=== PATIENT | male | born 1980 | race Caucasian/White ===

== ENCOUNTER 2021-10-10 07:31 | Day surgery (SDC) | payer OTHER ==
[2021-10-10] VITALS (190 sets, daily range): BP systolic 101–174; BP diastolic 54–121
[~2021-10-10] VITALS: Ht 190.5 cm; Wt 136.0 kg
--- NOTE | 2021-10-10 06:59 | NUR ---
PT ARRIVED ROOM 290 ACCOMPAINED BY FAMILY MEMBERS. PT A&OX4, AMBULATORY WITH STEADY GAIT. DISCUSSED POC AND SAFETY PRECAUTIONS. PT VERBALIZED UNDERSTANDING. CONSENT OBTAINED. IV SITE ESTABLISHED. ORIENTED TO ROOM AND CALL LIGHT SYSTEM. PT CHANGED INTO GOWN AT THIS TIME. CALL LIGHT WITHIN REACH. WILL CONTINUE TO MONITOR.
[2021-10-10 07:27] LABS: HEMATOCRIT 44.3 % (39.0-50.0); HEMOGLOBIN 14.7 g/dl (14.0-18.0); IMMATURE GRANULOCYTES 0.4 % (0.0-5.0); MEAN CELL VOLUME 92.5 fL CALC (80.0-100.0); MEAN CORPUSCULAR HGB 30.7 pG CALC (26.0-32.0); MEAN CORPUSCULAR HGB CONC 33.2 g/dL CAL (32.0-36.0); NEUT# 6.23 thou/uL (1.82-7.42); RED BLOOD COUNT 4.79 mill/uL (4.70-6.10)
--- NOTE | 2021-10-10 07:30 | NUR ---
VSS CALLED TO DR. DONNELLY AT THIS TIME, NEW ORDERS RECEIVED. WILL MEDICATE AND CONTINUE TO MONITOR.
[2021-10-10 07:47] LABS: ALBUMIN 4.2 g/dL (3.2-5.0); ALKALINE PHOSPHATASE 78 u/l (38-126); ANION GAP 13 (6-22 (CALC)); BILIRUBIN, TOTAL 0.5 mg/dL (0.0-1.4); BUN 12 mg/dL (9-20); BUN/CREATININE RATIO 16 (12-20 (CALC)); CARBON DIOXIDE 27 mmol/l (22-30); CHLORIDE 103 mmol/l (95-108); CREATININE 0.7 mg/dL (0.7-1.3); GFR FOR AFR.AMER. > 60 ML/MIN (>=60 (CALC)); GFR OTHER RACES > 60 ML/MIN (>=60 (CALC)); POTASSIUM 4.3 mmol/l (3.5-5.1); SGOT/AST 30 u/l (17-59); SODIUM 138 mmol/l (137-146); TOTAL PROTEIN 7.6 g/dL (6.3-8.2)
--- NOTE | 2021-10-10 09:30 | NUR ---
REPEAT VS CALLED TO DR. DONNELLY AT THIS TIME. NEW ORDERS RECEIVED. WILL MEDICATE AND CONTINUE TO MONITOR.
--- NOTE | 2021-10-10 12:05 | NUR ---
Induction Note Patient to [facility] procedure room. Time out performed at 1205. Patient placed on monitors, Enrico hugger, bilateral wrist restraints applied for ET tube protection. Versed 5mg given IV push at 1206 Tourniquet applied to right arm Lidocaine 100mg given [id number] IV push followed by Rocoronium 10mg at 1208 IV push and held for 90 seconds. Propofol bolus of 150mg given at 1210 IV push. Succinylcholine 80mg given IV push at 1211. Smooth intubation with 7.5 ETT. Positive CO2. Positive Auscultation for air exchange. Patient placed on ventilator for spontaneous ventilation. Placed on Propofol IV drip at 1212. OG inserted. Positive air on auscultation. Positive gastric content. Stomach washed at this time.
--- NOTE | 2021-10-10 12:23 | NUR ---
OG close note Stomach washed at this time. Naltrexone 75 mg with Clonidine 0.3 mg via OG tube. OG will be clamped for 45 minutes.
--- NOTE | 2021-10-10 13:08 | NUR ---
OG open note OG open at this time. Gastric content draining into drainage bag. OG to drain for 45 minutes. Propofol will be titrated down based on patient.
--- NOTE | 2021-10-10 13:53 | NUR ---
OG close note Stomach washed at this time. Naltrexone 50 mg with Clonidine 0.3 mg via OG tube. OG will be clamped for 45 minutes.
--- NOTE | 2021-10-10 15:23 | NUR ---
OG close note Stomach washed at this time. Naltrexone 25 mg with Clonidine 0.3 mg via OG tube. OG will be clamped for 45 minutes.
[2021-10-10] MEDS ORDERED: KLONOPIN2 MG PO (15:55)
[2021-10-10] MEDS ORDERED: CLONIDINE0.1 MG PO (15:56)
[2021-10-10] MEDS ORDERED: NALTREXONE50 MG PO (15:56)
--- NOTE | 2021-10-10 17:50 | NUR ---
OG close note Stomach washed at this time. Naltrexone 25 mg with Clonidine 0.3 mg via OG tube.KLONIPIN 2 MG OG TUBE. OG will be clamped for 30 minutes.
--- NOTE | 2021-10-10 18:40 | NUR ---
Extubation note Closing medications given Benadryl 50mg IV push, Decadron 10mg IV push,Magnesium 4 grams IV, Zofran 8mg IV push, Octreotide 100mcg SC. Stomach washed out prior to extubation. Suctioned gastric content. OG removed. Patient extubated. Propofol Discontinued. Wrist restraints removed. Enrico hugger Removed. See ANR Moderate sedate recovery record for further notes and assessment.
--- NOTE | 2021-10-10 19:05 | NUR ---
PT TRANSPORTED BACK TO ROOM 290. REPORT GIVEN TO EMMETT NELSON. PT RESTING COMFORTABLY IN BED. VSS. BED IN LOWEST POSITION, CALL LIGHT WITHIN REACH.
--- NOTE | 2021-10-10 19:35 | NUR ---
PATIENT LAYING IN BED. REDIRECTED MULTIPLE TIMES TO PUT ARMS DOWN. NO SIGNS OF DISTRESS. BED REMAINS IN LOW POSITION. BED ALARM ACTIVE.
--- NOTE | 2021-10-11 00:40 | NUR ---
PATIENT LAYING IN BED. NEEDS FREQUENT REMINDING. PULLS AT THINGS. NO DISTRESS NOTED. BED REMAINS IN LOW POSITION WITH HOB ELEVATED. PATIENT KEEPS PULLING OUT IVS. REDIRECTED. BED ALARM REMAINS ACTIVE.
[2021-10-11 02:45] VITALS: BP 146/86
--- NOTE | 2021-10-11 03:04 | NUR ---
PATIENT HAD ONE EPISODE OF EMESIS. PRN ZOFRAN GIVEN PER ORDERS. VS STABLE. NO DISTRESS NOTED. PATIENT WAS ASKING QUESTIONS AFTER RECEIVING THE MEDICATION. PATIENT ASKED TO HAVE THE HEAD OF HIS BED FLAT. EDUCATED PATIENT ON IMPORTANCE OF THE HOB NEEDED TO BE ELEVATED FOR SAFETY REASONS IN CASE HE THROWS UP AGAIN.
--- NOTE | 2021-10-11 04:28 | NUR ---
PATIENT ATTEMPTED TO GET OUT OF BED. WANTED TO AMBULATE TO BATHROOM. AMBULATED WITH ASSIST X2. PATIENT UNSTEADY. PATIENT DID VOID IN TOILET. PATIENT AMBULATED BACK TO BED. BED IN LOW POSITION. BED ALARM ON.
[2021-10-11 05:55] LABS: HEMOGLOBIN 15.7 g/dl (14.0-18.0); IMMATURE GRANULOCYTES 0.6 % (0.0-5.0); MEAN CELL VOLUME 90.7 fL CALC (80.0-100.0); MEAN CORPUSCULAR HGB CONC 34.1 g/dL CAL (32.0-36.0); NEUT# 13.83 thou/uL (1.82-7.42); RED BLOOD COUNT 5.07 mill/uL (4.70-6.10); RED CELL DISTRI WIDTH 13.2 % (11.5-15.5)
[2021-10-11 06:17] LABS: ALBUMIN 4.7 g/dL (3.2-5.0); ALKALINE PHOSPHATASE 72 u/l (38-126); ANION GAP 18 (6-22 (CALC)); BILIRUBIN, TOTAL 0.6 mg/dL (0.0-1.4); BUN 18 mg/dL (9-20); BUN/CREATININE RATIO 21 (12-20 (CALC)); CARBON DIOXIDE 24 mmol/l (22-30); CHLORIDE 105 mmol/l (95-108); CREATININE 0.9 mg/dL (0.7-1.3); GFR FOR AFR.AMER. > 60 ML/MIN (>=60 (CALC)); GFR OTHER RACES > 60 ML/MIN (>=60 (CALC)); MAGNESIUM 2.7 mg/dL (1.6-2.3); POTASSIUM 4.2 mmol/l (3.5-5.1); SGOT/AST 32 u/l (17-59); SODIUM 142 mmol/l (137-146); TOTAL PROTEIN 7.8 g/dL (6.3-8.2)
--- NOTE | 2021-10-11 07:30 | NUR ---
PATIENT AWAKE. PATIENT C/O NAUSEA. ALERT X4. PATIENT UNDERSTANDS WHAT IS SAID TO HIM. SKIN IS WARM, DRY AND INTACT. PATIENT SHOWERED BY MORNING SHIFT FARM MANAGER. PATIENT ABLE TO WALK WITH SUPERVISION. CONTINENT AND ABLE TO CALL FOR HELP. NO IV FLUIDS RUNNING AT THIS TIME. CALL LIGHT IN REACH. BED RAILS X4 UP FOR SAFETYL. BED IN LOWEST POSITION WITH WHEELS LOCKED.
[2021-10-11 07:45] VITALS: BP 145/93
[2021-10-11 08:45] VITALS: BP 145/93
--- NOTE | 2021-10-11 14:00 | NUR ---
PHYSICAN AT BEDSIDE WITH PATIENT. PATIENT C/O ACID REFLUX. AWAKE AND ALERT X4. PATIENT ABLE TO AMBULATE INDEPENDENTLY. IV FLUIDS COMPLETED AT THIS TIME. PATIENT BREATHING EVEN AND NONLABORED. SKIN WARM, DRY AND INTACT. BED ALARM OFF.SIDE RAILS X2 UP FOR SAFETY. BED IN LOWEST POSITION WITH WHEELS LOCKED.
--- NOTE | 2021-10-11 14:52 | NUR ---
Discharge instructions given. Patient verbalizes understanding of same. Discharged in stable condition via Ambulatory to Home with family. All belongings sent with pt.
== END 2021-10-11 14:53 | disposition home or self-care (01) | DRG 897 ==
LOC: MS2 07:31 → ANR 07:31
PROVIDERS: ATTEND Anesthesiology
DX: F11.20 Opioid dependence, uncomplicated (principal)
CPT/HCPCS: J2354; S0164